=== PATIENT | female | born 1960 | race Caucasian/White ===

== ENCOUNTER 2017-01-29 10:30 | Emergency (ER) | payer BC ==
[2017-01-29 10:43] VITALS: BP 127/88; PULSE 86; TEMP 98.2; BMI 37.8
--- NOTE | 2017-01-29 11:23 | PDOC ---
History of Present Illness - General Chief Complaint: Eye Problem Stated Complaint: EYE PROBLEM Time Seen by Provider: 01/29/17 10:56 History Source: Patient Exam Limitations: No Limitations - History of Present Illness Initial Comments: 01/29/17 12:52 Chief complaint: Itching and drainage to eyes Patient is a 56-year-old female with a history of NIDDM, well controlled, states she saw her sugar 3 times a day which is about 150, and does not wear contacts who is complaining of itching to her eyes for a few days, and woke up with drainage this morning specially to the right eye. Patient otherwise feels well. 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 No visual issues GENERAL/CONSTITUTIONAL: No fever, weakness. dizziness HEAD, EYES, EARS, NOSE AND THROAT: No change in vision. + Itching and drainage to the eyes No ear pain or discharge. No sore throat. CARDIOVASCULAR: No chest pain RESPIRATORY: No shortness of breath or cough GASTROINTESTINAL: No pain, nausea, vomiting, diarrhea or constipation GENITOURINARY: No dysuria MUSCULOSKELETAL: No neck or back pain SKIN: No rash NEUROLOGIC: No headache, vertigo, loss of consciousness, or loss of sensation. GENERAL: The patient is awake, alert, and fully oriented, in no acute distress. HEAD: Normal with no signs of trauma. EYES: Pupils equal, round and reactive to light, sclera anicteric, conjunctiva clear. Mild swelling and slight redness periorbital consistent with allergy. no signs of cellulitis, tearing from both eyes. no drainage now. eomi, fundal exam no gross abnormality. no pain ENT: pharynx: no erythema, no exudate, uvula midline NECK: supple CHEST: clear, nontender, rr EXTREMITIES: Normal range of motion, no edema. NEUROLOGICAL: Normal speech, normal gait. SKIN: Warm, Dry Past History - Past Medical History Allergies/Adverse Reactions: Allergies Allergy/AdvReac Type Severity Reaction Status Date / Time No Known Allergies Allergy Verified 01/29/17 10:41 Home Medications: Ambulatory Orders Alprazolam [Xanax -] 0.5 mg PO BID 01/26/14 Furosemide [Lasix -] 10 mg PO DAILY 01/26/14 Nebivolol HCl [Bystolic] 20 mg PO DAILY 01/26/14 Amox-Tr/K Cl [Augmentin - 875Mg Tablet] 1 tab PO BID #14 tablet 09/13/15 Tobramycin 0.3% Ophth Soln [Tobrex *Ophthalmic Solution*] 1 drop OU TID #1 drops 01/29/17 Anemia: No Asthma: No Cancer: No Cardiac Disorders: No CVA: No COPD: No CHF: No Dementia: No Diabetes: Yes (BORDERLINE) GI Disorders: No Disorders: No HTN: Yes Hypercholesterolemia: No Liver Disease: No Seizures: No Thyroid Disease: No - Surgical History Cholecystectomy: Yes - Immunization History Td Vaccination: Yes (1999) - Psycho/Social/Smoking Cessation Hx Anxiety: No Suicidal Ideation: No Smoking Status: No Smoking History: Never smoked Number of Cigarettes Smoked Daily: 0 Hx Alcohol Use: No Drug/Substance Use Hx: No Substance Use Type: None, Alcohol Hx Substance Use Treatment: No *Physical Exam - Vital Signs Last Vital Signs Temp Pulse Resp BP Pulse Ox 98.2 F 86 16 127/88 96 01/29/17 10:41 01/29/17 10:41 01/29/17 10:41 01/29/17 10:41 01/29/17 10:41 Medical Decision Making - Medical Decision Making 01/29/17 12:56 Patient with ALLERGIC component of conjunctivitis, now with drainage, no visual issues, does not wear contacts. 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 Will treat for bacterial conjunctivitis given history and exposure and also will give her suggestions for the itching, and ALLERGIC component. 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 *DC/Admit/Observation/Transfer Diagnosis at time of Disposition: Conjunctivitis Qualifiers: Conjunctivitis type: unspecified Laterality: unspecified laterality Qualified Code(s): H10.9 - Unspecified conjunctivitis - Discharge Dispostion Disposition: HOME Condition at time of disposition: Stable - Prescriptions Prescriptions: Tobramycin 0.3% Ophth Soln [Tobrex *Ophthalmic Solution*] 1 drop OU TID #1 drops - Referrals Referrals: Alvaro Cheng MD [Primary Care Provider] - - Patient Instructions Printed Discharge Instructions: Conjunctivitis Additional Instructions: use the tobrex 1-2 drops both eyes for 5-7 days take the claritin 10 mg daily. if that is not enough you can take benadryl 25 mg every 4 hours. follow up with opthamologist
== END 2017-01-29 11:41 | disposition home or self-care (01) ==
LOC: JERFT 10:30
DX: H10.13 Acute atopic conjunctivitis, bilateral (principal); E11.9 Type 2 diabetes mellitus without complications; Z79.84 Long term (current) use of oral hypoglycemic drugs
CPT/HCPCS: 99281-25

== ENCOUNTER 2017-10-16 05:09 | Day surgery (SDC) | payer BC ==
[2017-10-10 17:45] VITALS: BMI 41.1
[2017-10-16] MEDS ORDERED: LIDOCAINE HCL/PF 2% SDV 5ML VIAL ONE (11:41)
[2017-10-16] MEDS ORDERED: MIDAZOLAM HCL 2 MG/2 ML SINGLE DOSE VIAL ONE (11:41)
[2017-10-16] MEDS ORDERED: PROPOFOL 20 ML ONE ×2 (11:41)
[2017-10-16] MEDS ORDERED: DESFLURANE GAS 240 ML BOTTLE IH ONE (11:46)
[2017-10-16] MEDS ORDERED: ceFAZolin SODIUM 1 GM VIAL ONE (12:32)
[2017-10-16] MEDS ORDERED: KETOROLAC TROMETHAMINE 30 MG/1 ML VIAL ONE (12:32)
[2017-10-16] MEDS ORDERED: ceFAZolin SODIUM 1 GM VIAL IVPB ONE (12:33)
[2017-10-16] MEDS ORDERED: ONDANSETRON 4 MG/2 ML VIAL IVPUSH PRN (12:43)
[2017-10-16] MEDS ORDERED: LACTATED RINGERS SOLUTION 1,000 ML IV SCH (12:45)
[2017-10-16] MEDS ORDERED: ACETAMINOPHEN 325 MG TABLET (FP) PO PRN (13:05)
[2017-10-16] MEDS ORDERED: IBUPROFEN 400 MG TABLET (FP) PO PRN (13:05)
--- NOTE | 2017-10-16 13:34 | OP ---
DATE OF OPERATION: 10/16/2017 PREOPERATIVE DIAGNOSIS: Postmenopausal bleeding. POSTOPERATIVE DIAGNOSIS: Postmenopausal bleeding. SURGEON: Ayanna Ta MD ANESTHESIA: General by Nat Mcgrath MD OPERATION: Hysteroscopy and dilatation and curettage. Once patient was prepped and draped under general anesthesia, examination under anesthesia revealed vagina bleeding, cervix closed, corpus top normal, adnexae negative. During procedure, weighted speculum applied in the vagina. Cervix grasped with tenaculum. Cervical canal dilated up to 21 Hegar. Uterine cavity was 7 cm. At this time, hysteroscopy was done with the help of saline medium. Entire endocervix and endometrium were evaluated. There was some polyp and after hysteroscopy the D & C was done. In that manner, endocervical curetting was done with small amount of tissue removed. Then, endometrial curetting was done and a moderate amount of tissue with some polyp was removed and sent to Pathology. Estimated blood loss was 20 mL. Patient tolerated the procedure, was sent to recovery room in good condition. Sonia [id number]
[2017-10-16 14:46] VITALS: TEMP 97.5
[2017-10-16 15:10] VITALS: BP 102/65; PULSE 72
--- NOTE | 2017-10-17 12:31 | PATH ---
Surgical Pathology Report Patient Name: LIZBET DAILEY [facility]. Rec. #: [id number] /Age/Gender: 1960 (Age: 57) / F Account: [id number] Location: [facility] SURGICAL Taken: 10/16/2017 Received: 10/16/2017 Reported: 10/17/2017 Physicians: Alberto Ta M.D. Specimen(s) Received A: ENDOCERVICAL CURETTINGS B: ENDOMETRIAL CURETTINGS Clinical History Postmenopausal bleeding Final Diagnosis A. ENDOCERVICAL CURETTINGS, DILATATION AND CURETTAGE: SCANT FRAGMENTS OF ENDOMETRIUM WITH SIMPLE HYPERPLASIA AND BENIGN CERVICAL TISSUE. B. ENDOMETRIAL CURETTINGS, DILATATION AND CURETTAGE: ENDOMETRIAL ENDOMETRIOID ADENOCARCINOMA, FIGO GRADE 2, ARISING IN A BACKGROUND OF COMPLEX ATYPICAL HYPERPLASIA AND ENDOMETRIAL POLYP. Electronically Signed Carolee Ardon M.D. Addendum Reported: 10/17/2017 Addendum Diagnosis Findings discussed with Dr. Ta on 10/17/17. Carolee Ardon M.D. Gross Description A. Received in formalin labeled "endocervical curetting," is a 1.0 x 1.0 x 0.3 cm aggregate of francis red soft tissue fragments. The formalin is filtered and the specimen is entirely submitted in one cassette. B. Received in formalin labeled "endometrial curetting," is a 3.7 x 3.3 x 0.3 cm aggregate of francis pink soft tissue fragments. The formalin is filtered and the specimen is entirely submitted in 2 cassettes. /10/16/2017 saudi/10/16/2017
== END 2017-10-16 15:30 | disposition home or self-care (01) ==
LOC: JASU-SURG 05:09
PROVIDERS: ATTEND Obstetrics & Gynecology
PROC: 0UDB8ZX Extraction of Endometrium, Via Natural or Artificial Opening Endoscopic, Diagnostic (ICD-10-PCS; principal; 2017-10-16 12:00)
DX: N95.0 Postmenopausal bleeding (principal)
CPT/HCPCS: 86850; 86900; 86901; 88305-TC; 94760

== ENCOUNTER → 2018-12-31 | Day surgery (SDC) | payer BC ==
--- NOTE | 2018-12-31 12:26 | OP ---
DATE OF OPERATION: DATE OF DICTATION: 12/31/2018 PREOPERATIVE DIAGNOSIS: Abnormal right mammography. POSTOPERATIVE DIAGNOSIS: Abnormal right mammography. PROCEDURE: Right stereotactic needle biopsy with clip. SURGEON: Ewa Hernandez MD ANESTHESIA: Local. COMPLICATIONS: None. This was a sterile procedure. INDICATIONS FOR PROCEDURE: Patient presented for routine screening mammography that noted a cluster of microcalcifications in the inner right breast. My recommendation was a needle biopsy. The procedure was discussed with all the questions answered. PROCEDURE IN DETAIL: Patient brought to [facility] in [place]. Laid prone on the Lorad table. Using the caudal approach the calcifications in the lower inner right breast were identified. A sterile prep obtained. A target was chosen. There was a positive stroke margin. Using Betadine and 1% lidocaine a 9-gauge Suros device was used to take several cores from this area. Cores showed calcifications within them. These were handled with usual calcification protocol. A T-shaped clip was deployed in the area. Hemostasis assured with direct pressure. The incision was closed with Steri-Strips. She tolerated procedure well and left the breast imaging center in good condition. EWA HERNANDEZ M.D. [id number]
--- NOTE | 2019-01-01 14:56 | PATH ---
Surgical Pathology Report Patient Name: LIZBET DAILEY [facility]. Rec. #: [id number] /Age/Gender: 1960 (Age: 58) / F Account: [id number] Location: [facility] Taken: 12/31/2018 Received: 12/31/2018 Reported: 01/01/2019 Physicians: Ewa Ortiz M.D. Specimen(s) Received A: BREAST, RIGHT B: BREAST, RIGHT Clinical History Nonpalpable lesion Mammographic findings: Microcalcification, suspicious Final Diagnosis A. BREAST, RIGHT, WITH CALCIFICATIONS, STEREOTACTIC CORE BIOPSY: FIBROADENOMA WITH ASSOCIATED STROMAL MICROCALCIFICATIONS. B. BREAST, RIGHT, WITHOUT CALCIFICATIONS, STEREOTACTIC CORE BIOPSY: BENIGN BREAST PARENCHYMA WITH FIBROADENOMATOID CHANGES. Electronically Signed Carolee Ardon M.D. Gross Description A. Received in formalin labeled "right breast with calcifications," is a 2.7 cm in length x 0.2 cm in diameter francis-yellow, cylindrical portion of fibroadipose tissue which is submitted in toto in one cassette. B. Received in formalin labeled "right breast without calcifications," is a 2.3 x 1.8 x 0.3 cm aggregate of francis-yellow, irregular to cylindrical portions of fibroadipose tissue. The formalin is filtered and the specimen is entirely submitted in one cassette. Time to formalin fixation: 5 minutes Total formalin fixation time: Approximately 6 hours. /12/31/201812/31/2018
== END | disposition home or self-care (01) ==
LOC: FRADUS-SUR 10:33
PROVIDERS: ATTEND Surgery
PROC: 0HBT3ZX Excision of Right Breast, Percutaneous Approach, Diagnostic (ICD-10-PCS; principal; 2018-12-31)
DX: D24.1 Benign neoplasm of right breast (principal); N64.89 Other specified disorders of breast; R92.8 Other abnormal and inconclusive findings on diagnostic imaging of breast
CPT/HCPCS: 19081; 88305-TC

== ENCOUNTER 2019-07-16 11:01 | Emergency (ER) | payer BC ==
[2019-07-16 11:15] VITALS: BP 157/79; PULSE 96; TEMP 98.1; BMI 39.1
--- NOTE | 2019-07-16 11:51 | PDOC ---
History of Present Illness - General Chief Complaint: Laceration Stated Complaint: CUT,DM Time Seen by Provider: 07/16/19 11:28 History Source: Patient Exam Limitations: No Limitations Past History - Past Medical History Allergies/Adverse Reactions: Allergies Allergy/AdvReac Type Severity Reaction Status Date / Time acetaminophen [From Percocet] Allergy "FEELS Verified 07/16/19 11:15 LIKE [employer]ANG[employer]" oxycodone [From Percocet] Allergy "FEELS Verified 07/16/19 11:15 LIKE WOR[employer] HANGOVER" Home Medications: Ambulatory Orders Alprazolam [Xanax -] 0.5 mg PO TID 01/26/14 Furosemide [Lasix -] 20 mg PO DAILY 01/26/14 Nebivolol HCl [Bystolic] 10 mg PO DAILY 01/26/14 Empagliflozin [Jardiance] 25 mg PO DAILY 10/16/17 Meclizine HCl 25 mg PO DAILY 10/16/17 Sitagliptin Phosphate [Januvia -] 100 mg PO DAILY 10/16/17 Anemia: No Asthma: No Cancer: No Cardiac Disorders: No CVA: No COPD: No CHF: No Dementia: No Diabetes: Yes GI Disorders: No Disorders: No HTN: Yes Hypercholesterolemia: No Liver Disease: No Seizures: No Thyroid Disease: No - Surgical History Cholecystectomy: Yes - Immunization History Td Vaccination: Yes (1999) Immunization Up to Date: Yes - Psycho Social/Smoking Cessation Hx Smoking Status: No Smoking History: Never smoked Have you smoked in the past 12 months: No Number of Cigarettes Smoked Daily: 0 Information on smoking cessation initiated: No Hx Alcohol Use: No Drug/Substance Use Hx: No Substance Use Type: None, Alcohol Hx Substance Use Treatment: No *Physical Exam - Vital Signs Last Vital Signs Temp Pulse Resp BP Pulse Ox 98.1 F 96 H 20 157/79 96 07/16/19 11:13 07/16/19 11:13 07/16/19 11:13 07/16/19 11:13 07/16/19 11:13 - Physical Exam General Appearance: No: Apparent Distress Extremity: positive: Other (superficial abrasion along distal, lateral aspect of L index finger, no active bleeding, no laceration, no swelling of fingers, FROM of fingers) Neurologic: positive: Alert Medical Decision Making - Medical Decision Making 58 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 Is UTD on immunizations. Denies other complaints No laceration Abrasion covered with bacitracin stable for dc 07/16/19 11:49 Discharge - Discharge Information Problems reviewed: Yes Clinical Impression/Diagnosis: Finger abrasion Qualifiers: Encounter type: initial encounter Qualified Code(s): S60.419A - Abrasion of unspecified finger, initial encounter Disposition: HOME - Admission No - Additional Discharge Information Prescription Drug Monitoring Program (I-STOP) results: I-STOP not reviewed - Follow up/Referral Referrals: Alvaro Cheng MD [Primary Care Provider] - - Patient Discharge Instructions Patient Printed Discharge Instructions: DI for Abrasion Additional Instructions: Thank you for choosing [facility]. It was a pleasure taking care of you. You may apply Neosporin to site as needed Return to the Emergency Department if your symptoms worsen or persist, you have heavy bleeding, swelling, purulent drainage or other concerning symptoms. - Post Discharge Activity
== END 2019-07-16 12:19 | disposition home or self-care (01) ==
LOC: JERFT 11:01
DX: S60.411A Abrasion of left index finger, initial encounter (principal); W26.0XXA Contact with knife, initial encounter; Y93.G1 Activity, food preparation and clean up; Y92.030 Kitchen in apartment as the place of occurrence of the external cause; Y99.8 Other external cause status; E11.9 Type 2 diabetes mellitus without complications; Z79.84 Long term (current) use of oral hypoglycemic drugs; I10 Essential (primary) hypertension; Z88.5 Allergy status to narcotic agent; Z88.6 Allergy status to analgesic agent
CPT/HCPCS: 99281-25

== ENCOUNTER 2020-12-21 09:01 | Emergency (ER) | payer BC ==
[2020-12-21] MEDS ORDERED: KETOROLAC TROMETHAMINE 30 MG/1 ML VIAL ONE (09:10)
[2020-12-21] MEDS ORDERED: KETOROLAC TROMETHAMINE 30 MG/1 ML VIAL IM ONE (09:10)
[2020-12-21 09:20] VITALS: BP 139/73; PULSE 86; TEMP 98.9; BMI 36.0
== END 2020-12-21 10:30 | disposition home or self-care (01) ==
LOC: FER 09:01
PROC: 3E0233Z Introduction of Anti-inflammatory into Muscle, Percutaneous Approach (ICD-10-PCS; principal; 2020-12-21)
DX: T14.8XXA Other injury of unspecified body region, initial encounter (principal)
CPT/HCPCS: 71101-TC-LT-FY; 73562-TC-LT-FY; 99284-25